=== PATIENT | female | born 1950 | race Caucasian/White ===

== ENCOUNTER 2017-01-07 10:28 | Emergency (ER) | payer MEDICARE, MEDICAID ==
[~2017-01-07] VITALS: Ht 149.9 cm; Wt 63.6 kg
[~2017-01-07 10:28] MED LIST: AMOXI1255L PO; CLAR500T PO; OMEP20 PO
[2017-01-07 11:00] VITALS: BP 144/67
== END 2017-01-07 11:46 | disposition home or self-care (01) ==
LOC: EMS 10:29
DX: S00.11XA Contusion of right eyelid and periocular area, initial encounter (principal); K21.9 Gastro-esophageal reflux disease without esophagitis; W19.XXXA Unspecified fall, initial encounter; Y93.89 Activity, other specified; Y92.89 Other specified places as the place of occurrence of the external cause; Y99.8 Other external cause status
CPT/HCPCS: 99281

== ENCOUNTER 2021-04-29 11:04 | Emergency (ER) | payer MEDICARE, MEDICAID ==
[~2021-04-29] VITALS: Ht 152.4 cm; Wt 65.9 kg
[2021-04-29 13:14] LABS: COVID AG,FIA SOURCE NASOPHARYNGEAL
[2021-04-29 13:37] LABS: INFLUENZA TYPE A NEGATIVE FOR TYPE A (NEGATIVE); INFLUENZA TYPE B NEGATIVE FOR TYPE B (NEGATIVE)
[2021-04-29 14:13] VITALS: BP 145/78
== END 2021-04-29 14:43 | disposition home or self-care (01) ==
LOC: EMS 11:14
DX: J06.9 Acute upper respiratory infection, unspecified (principal); B02.9 Zoster without complications; Z20.822 Contact with and (suspected) exposure to COVID-19
CPT/HCPCS: 71045; 87426; 87804; 99284; U0003

== ENCOUNTER 2021-12-24 10:54 | Emergency (ER) | payer MEDICARE, MEDICAID ==
[~2021-12-24] VITALS: Ht 152.4 cm; Wt 79.5 kg
[2021-12-24] MEDS ORDERED: [UNRECOGNIZED DRUG - REMARK] PO (11:00)
[2021-12-24] MEDS ORDERED: OMEG-135 PO (11:00)
[2021-12-24 11:25] LABS: APPEARANCE,URINE CLEAR (CLEAR); BILIRUBIN,URINE NEGATIVE (NEGATIVE); GLUCOSE, URINE (UA) NEGATIVE (NEGATIVE); KETONES,URINE NEGATIVE (NEGATIVE); LEUKOCYTE ESTERASE ,URINE LARGE (NEGATIVE); NITRATE,URINE NEGATIVE (NEGATIVE); OCCULT BLOOD,URINE NEGATIVE (NEGATIVE); PROTEIN,URINE NEGATIVE (NEGATIVE); SPECIFIC GRAVITIY, URINE 1.019 (1.003-1.030); UROBILINOGEN,URINE <=1.0 mg/dL (<=1.0)
[2021-12-24 11:49] LABS: BACTERIA,URINE Few /HPF (None Seen); RBC,URINE None Seen /HPF (0-2); SQUAMOUS EPITHELIAL CELL,UR Few /LPF (None Seen)
[2021-12-24 13:00] VITALS: BP 129/74
[2021-12-24] MEDS ORDERED: CEPH-558 PO (13:10)
== END 2021-12-24 13:21 | disposition home or self-care (01) ==
LOC: EMS 10:56
DX: N39.0 Urinary tract infection, site not specified (principal); E78.00 Pure hypercholesterolemia, unspecified; Z79.899 Other long term (current) drug therapy
CPT/HCPCS: 81001; 87086; 99283

== ENCOUNTER 2023-03-28 09:47 | Emergency (ER) | payer MEDICARE, MEDICAID ==
[~2023-03-28] VITALS: Ht 154.9 cm; Wt 70.5 kg
[~2023-03-28 09:47] MED LIST changes: -AMOXI1255L PO; +CEPH-558 PO; -CLAR500T PO; +OMEG-135 PO; -OMEP20 PO; +[UNRECOGNIZED DRUG - REMARK] PO
[2023-03-28 09:53] VITALS: TEMP 98.7
[2023-03-28 11:50] VITALS: BP 135/66; PULSE 66; RESP 18
[2023-03-28] MEDS ORDERED: PRED-729 PO (12:34)
[2023-03-28] MEDS ORDERED: DIPH25CA85 PO (12:36)
== END 2023-03-28 13:25 | disposition home or self-care (01) ==
LOC: EMS 09:47
DX: L30.9 Dermatitis, unspecified (principal); E78.00 Pure hypercholesterolemia, unspecified; Z90.49 Acquired absence of other specified parts of digestive tract; Z90.710 Acquired absence of both cervix and uterus
CPT/HCPCS: 99283; Z7502

== ENCOUNTER 2023-09-26 11:20 | Emergency (ER) | payer MEDICARE, MEDICAID ==
[~2023-09-26] VITALS: Ht 154.9 cm; Wt 61.4 kg
[~2023-09-26 11:20] MED LIST changes: +DIPH25CA85 PO; +PRED-729 PO
[2023-09-26 11:26] VITALS: TEMP 97.7
[2023-09-26] MEDS: DiphenhydrAMINE HCL 25 MG CAPSULE PO ONE (11:53)
[2023-09-26] MEDS ORDERED: CHOL200074 PO (11:53)
[2023-09-26] MEDS ORDERED: CETI10TA58 PO (11:53)
[2023-09-26] MEDS ORDERED: ATOR40TA71 PO (11:53)
[2023-09-26] MEDS: PredniSONE 20 MG TABLET PO ONE (11:54)
[2023-09-26] MEDS ORDERED: PRED-554 PO (14:20)
[2023-09-26] MEDS ORDERED: DIPH-1243 PO (14:24)
[2023-09-26 15:05] VITALS: BP 118/67; PULSE 66; RESP 16
== END 2023-09-26 15:16 | disposition home or self-care (01) ==
LOC: EMS 11:20
DX: T78.40XA Allergy, unspecified, initial encounter (principal); E78.00 Pure hypercholesterolemia, unspecified; K29.70 Gastritis, unspecified, without bleeding; X58.XXXA Exposure to other specified factors, initial encounter
CPT/HCPCS: 99283; J7512